=== PATIENT | female | born 1960 | race Caucasian/White ===

== ENCOUNTER 2019-05-01 01:48 | Emergency (ER) | payer BC ==
[~2019-05-01] VITALS: Ht 160 cm; Wt 55.5 kg
[~2019-05-01 01:48] MED LIST: BENTYL 20MG20 MG/TAB PO; CEPHALEXIN500 M1 PO; DULCOLAX STOOL100 MG PO; OXY IR5 MG PO; PERCOCET 325 MG1 TA2 PO; PHENERGAN 25 TA25 MG PO; REGLAN 10MG10 MG/TAB PO; ZOFRAN ODT4 MG PO
[2019-05-01 02:37] LABS: BASO % 0.2 % (0.0-2.0); GRAN # 10.5 (1.4-6.5); GRAN % 85.1 % (42.2-75.2); HEMATOCRIT 43.2 % (37.0-47.0); HEMOGLOBIN 14.7 g/dl (12.5-16.0); LYMPH % 7.7 % (20.0-51.0); MEAN CELL VOLUME 87 fl (80.0-100.0); MEAN CORPUSCULAR HEMOGLOBIN 30 pg (27.0-31.0); MEAN CORPUSCULAR HGB CONC 34 g/dl (33.0-37.0); MEAN PLATELET VOLUME 9.8 fl (7.4-10.4); MONO # 0.8 (0.1-0.6); MONO % 6.6 % (1.7-9.3); PLATELET COUNT 343 K/mm3 (130-400); RED BLOOD COUNT 4.96 M/mm3 (4.10-5.30); REDCELL DISTRIBUTION WIDTH-CV 13.7 % (11.5-14.5)
[2019-05-01 02:50] LABS: ALBUMIN 4.3 gm/dL (3.5-5.0); BILIRUBIN,TOTAL 0.9 mg/dL (0.0-1.0); C-REACTIVE PROTEIN 0.8 mg/dL (0.0-0.9); CALCIUM 9.2 mg/dL (8.4-10.2); CREATININE, serum 1.13 (0.52-1.25); MAGNESIUM 1.9 mg/dL (1.6-2.3); TOTAL PROTEIN 8.1 gm/dL (6.4-8.2)
[2019-05-01 02:52] LABS: POTASSIUM 2.8 mmol/L (3.4-5.0)
[2019-05-01 03:39] LABS: COLLECTION METHOD CLEAN CATCH
[2019-05-01 03:44] LABS: MUCOUS Present /lpf; PH 5 (5-8); SQUAMOUS EPITHELIAL 0-2 /hpf; URINE APPEARANCE Hazy; URINE BACTERIA None Seen /hpf; URINE BILIRUBIN Negative (NEGATIVE); URINE BLOOD 2+ (NEGATIVE); URINE COLOR Amber; URINE GLUCOSE Negative (NEGATIVE); URINE KETONE Negative (NEGATIVE); URINE LEUKOCYTE ESTERASE Negative (NEGATIVE); URINE NITRATE Negative (NEGATIVE); URINE PROTEIN(semi-quant) 1+ (NEGATIVE)
[2019-05-01] MEDS ORDERED: MACROBID 1100 MG/CAP PO (06:58)
[2019-05-01] MEDS ORDERED: PHENERGAN25 MG RC (06:58)
[2019-05-01] MEDS ORDERED: ZOFRAN ODT4 MG PO (06:58)
[2019-05-01] MEDS ORDERED: K-TAB20 PO (06:59)
[2019-05-01 09:30] VITALS: BP 130/92; PULSE 70; TEMP 98.6
== END 2019-05-01 09:40 | disposition home or self-care (01) ==
LOC: COL.ER 01:48
PROVIDERS: Emergency Medicine
DX: C48.1 Malignant neoplasm of specified parts of peritoneum (principal); N94.89 Other specified conditions associated with female genital organs and menstrual cycle; R11.10 Vomiting, unspecified; Z90.49 Acquired absence of other specified parts of digestive tract; Z90.710 Acquired absence of both cervix and uterus
CPT/HCPCS: J1170; J2405; J2550; J3475; J3480; J7030; J7120; Q9967

== ENCOUNTER → 2020-02-17 | Outpatient (CLI) | payer MEDICAID ==
[~2020-02-17] MED LIST changes: +K-TAB20 PO; +MACROBID 1100 MG/CAP PO; +PHENERGAN25 MG RC
== END ==
LOC: MC.RAD 12:32
DX: N63.20 Unspecified lump in the left breast, unspecified quadrant (principal); N63.10 Unspecified lump in the right breast, unspecified quadrant; Z85.038 Personal history of other malignant neoplasm of large intestine
CPT/HCPCS: G0279

== ENCOUNTER → 2020-03-21 | Outpatient (CLI) | payer MEDICAID ==
[~2020-03-21] VITALS: Ht 162.6 cm; Wt 55.7 kg
[~2020-03-21] MED LIST changes: +XELODA500 MG PO
[2020-03-21 10:51] VITALS: BP 118/72; PULSE 96
[2020-03-21 11:34] VITALS: BP 121/82; PULSE 88
== END ==
LOC: COL.RAD 10:08
DX: C18.1 Malignant neoplasm of appendix (principal); E04.1 Nontoxic single thyroid nodule

== ENCOUNTER 2020-06-27 10:51 | Inpatient (IN) | payer MEDICAID ==
[~2020-06-27] VITALS: Ht 160 cm; Wt 56.0 kg
[2020-06-27 12:49] LABS: BASO % 0.2 % (0.0-2.0); EOS % 0.2 % (0-4.0); GRAN # 8.6 (1.4-6.5); GRAN % 74.6 % (42.2-75.2); HEMOGLOBIN 10.3 g/dl (12.5-16.0); LYMPH # 1.6 (1.2-3.4); LYMPH % 13.6 % (20.0-51.0); MEAN CELL VOLUME 98 fl (80.0-100.0); MEAN CORPUSCULAR HEMOGLOBIN 32 pg (27.0-31.0); MEAN CORPUSCULAR HGB CONC 33 g/dl (33.0-37.0); MEAN PLATELET VOLUME 9.4 fl (7.4-10.4); MONO # 1.3 (0.1-0.6); MONO % 10.9 % (1.7-9.3); PLATELET COUNT 268 K/mm3 (130-400); RED BLOOD COUNT 3.23 M/mm3 (4.10-5.30)
[2020-06-27 12:53] LABS: HEMATOCRIT 31.5 % (37.0-47.0)
[2020-06-27 13:00] LABS: ALBUMIN 3.9 gm/dL (3.5-5.0); BILIRUBIN,TOTAL 0.4 mg/dL (0.0-1.0); C-REACTIVE PROTEIN 4.8 mg/dL (0.0-0.9); CALCIUM 9.3 mg/dL (8.4-10.2); CREATININE, serum 0.67 (0.52-1.25); POTASSIUM 3.9 mmol/L (3.4-5.0); TOTAL PROTEIN 8.6 gm/dL (6.4-8.2)
[2020-06-27 16:12] LABS: COLLECTION METHOD CLEAN CATCH
[2020-06-27 17:05] LABS: MUCOUS Present /lpf; PH 7 (5-8); URINE APPEARANCE Clear; URINE BACTERIA None Seen /hpf; URINE BILIRUBIN Negative (NEGATIVE); URINE BLOOD 2+ (NEGATIVE); URINE COLOR Yellow; URINE GLUCOSE Negative (NEGATIVE); URINE KETONE Trace (NEGATIVE); URINE LEUKOCYTE ESTERASE Negative (NEGATIVE); URINE NITRATE Negative (NEGATIVE); URINE PROTEIN(semi-quant) Negative (NEGATIVE); URINE RBC 20-50 /hpf
--- NOTE | 2020-06-27 17:49 | NUR ---
PT AOX4, PT DROWSY, PT REPORTS NAUSEA, PT MED REC COMPLETED ONLY REPORTS 2 MEDICATIONS. PT SETTLED INTO ROOM, CALL LIGHT WITHIN REACH. EKG BEING PERFORMED, NO OTHER NEEDS AT THIS TIME.
[2020-06-27 17:57] VITALS: BP 158/76; PULSE 68; TEMP 98
--- NOTE | 2020-06-27 18:20 | NUR ---
PT VOMITING OF YELLOW STOMACH BILE AND REPORTS FEELING TIRED AND DROWSY , PT REQUESTED JELLO AND SPRITE. FLUIDS ATTACHED, ZOFRAN GIVEN, JELLO AND SPRITE BROUGHT TO PT. NO OTHER NEEDS AT THIS TIME.
--- NOTE | 2020-06-27 19:31 | NUR ---
Received report from KIRK Marquez. Pt assisted to bathroom SBA, appears steady. Reports nausea, partial relief from lying in bed. Declines pain medication at this time.
[2020-06-27 19:33] VITALS: BP 148/78; PULSE 76; TEMP 97.7
--- NOTE | 2020-06-27 22:05 | NUR ---
Assessment completed. Pt reports nausea and being unable to keep anything down. Pt vomited into bucket at bedside multiple times while this RN at bedside. Emesis appears yellow/green in color and watery, small amount. Reports mild pain in legs, declines intervention for this. NS running at 125 to right chest port, dressing and site clean, dry, intact. Gait steady, denies dizziness.
[2020-06-27 23:46] VITALS: BP 144/74; PULSE 81; TEMP 99.4
--- NOTE | 2020-06-28 01:45 | NUR ---
PO Melatonin and Percocet given. Pt vomited immediately after taken. Pills not visualized in emesis. Libertad WALTERS updated of situation. IV Dilaudid ordered PRN for pain and rectal compazine ordered for N/V.
[2020-06-28 03:52] VITALS: BP 139/77; PULSE 72; TEMP 98.5
--- NOTE | 2020-06-28 06:59 | NUR ---
Pt continues to have N/V, reports little to no relief from Zofran, Phenergan, or Compazine. Emesis changed from green bile to watery brown. Pt has not eaten and only had a few sips of water and sprite, unable to keep this down. PO medications vomited up as well. Pain relieved by IV Dilaudid per pt report. Report given to KIRK Pandey. Pt lying in bed, denies needs at this time.
[2020-06-28 08:19] VITALS: BP 133/73; PULSE 71; TEMP 98.5
[2020-06-28 09:12] LABS: BASO % 0.2 % (0.0-2.0); GRAN # 7.2 (1.4-6.5); HEMOGLOBIN 10.7 g/dl (12.5-16.0); LYMPH # 1.1 (1.2-3.4); LYMPH % 11.6 % (20.0-51.0); MEAN CELL VOLUME 99 fl (80.0-100.0); MEAN CORPUSCULAR HEMOGLOBIN 32 pg (27.0-31.0); MEAN CORPUSCULAR HGB CONC 33 g/dl (33.0-37.0); MEAN PLATELET VOLUME 9.3 fl (7.4-10.4); MONO # 0.7 (0.1-0.6); MONO % 7.6 % (1.7-9.3); PLATELET COUNT 270 K/mm3 (130-400); RED BLOOD COUNT 3.34 M/mm3 (4.10-5.30); REDCELL DISTRIBUTION WIDTH-CV 17.2 % (11.5-14.5)
[2020-06-28 09:18] LABS: HEMATOCRIT 32.9 % (37.0-47.0)
--- NOTE | 2020-06-28 09:20 | NUR ---
Assessment complete. PAtient lying in bed eyes closed, but responds to all questions. PAtient seems very unhappy. States she cannot keep anything down without zomiting and is concerned about the color of it. She has requested to have the IV fluids discontinued, I will mention this to her healthcare team. Port site is CD&I. Patient denies other needs at this time. Call light is in reach.
[2020-06-28 09:27] LABS: CREATININE, serum 0.64 (0.52-1.25); MAGNESIUM 1.8 mg/dL (1.6-2.3); POTASSIUM 3.5 mmol/L (3.4-5.0)
--- NOTE | 2020-06-28 09:58 | NUR ---
Pt reportedly took her last dose of Xeloda on 06/21. It's presence in urine and stool will last for 5 days after administration which should be over unless drug is restarted.
[2020-06-28 12:46] VITALS: BP 141/73; PULSE 62; TEMP 98.5
--- NOTE | 2020-06-28 13:29 | NUR ---
Port not flushing well or giving blood return. Delcid needle dc'd and site prep with new access kit. 3/4 delcid needle used and blood return noted with much improved ease of flushing. Secured with tegaderm after flushed with NS 20ml.
--- NOTE | 2020-06-28 13:50 | NUR ---
Patients port became very hard to flush and would not draw blood at this time. Heparin flush was attempted to be used but only 1ml would flush. Krystyna Shields RN was consulted for help with this issue. After many tries the patients port continued to have issues. The port was deacessed and re-accessed and now flushes and draws very well. IVF continue to run at 75 ml/hr. Patient recieved PRN dilaudid at this time for pain rated at a 4-5. Patient is now resting eyes closed. No other needs at this time.
--- NOTE | 2020-06-28 16:11 | NUR ---
Patient continues to rest at this time, appears to be comfortable, eyes closed. NO other needs were expressed at this time. Call light is in reach.
--- NOTE | 2020-06-28 16:19 | NUR ---
Diesel Maintenance Electrician met with the patient to complete initial intake. The patient lives alone in [place]. The patient denies DME use and is independent with ADLs. The patient's PCP is Dr. Hu and Oncologist is Dr. Caldera. Per EMR the patient is on PO chemotherapy. The patient receives medications from [facility] pharmacy with no difficulties. The patient has advanced directives in the EMR. The patient has her groceries delivered from [employer]. The patient has transportation through her insurance to appointments. SW will need to assist with transportation set up at discharge. The patient plans to return home. Will continue to monitor.
[2020-06-28 16:50] VITALS: BP 106/62; PULSE 64; TEMP 98.1
[2020-06-28 20:01] VITALS: BP 121/74; PULSE 71; TEMP 97.8
--- NOTE | 2020-06-28 22:32 | NUR ---
Pt resting in bed, reports nausea but no emesis and was able to keep fluids down. gave zofran prn per orders documented in the MAR. pt denies any other pain. heart sounds are regular and lung sounds are clear, pt denies shortness of breath or cough. no other needs at this time, will continue to monitor.
[2020-06-28 23:29] VITALS: BP 112/62; PULSE 86; TEMP 98.7
[2020-06-29 03:14] VITALS: BP 101/53; PULSE 65; TEMP 97.7
--- NOTE | 2020-06-29 06:03 | NUR ---
pt sleeping in bed most of the night, did not call for any needs. will continue to monitor.
--- NOTE | 2020-06-29 06:11 | NUR ---
Pt ate saltine crackers and jello and was able to keep them down. pt also had water and juice to drink, no emesis during this shift. pt would like to continue to try and eat throughout the day.
[2020-06-29 07:24] LABS: BASO % 0.5 % (0.0-2.0); EOS # 0.1 (0.0-0.7); EOS % 1.1 % (0-4.0); LYMPH # 1.7 (1.2-3.4); LYMPH % 26.1 % (20.0-51.0); MEAN CELL VOLUME 100 fl (80.0-100.0); MEAN CORPUSCULAR HGB CONC 32 g/dl (33.0-37.0); MEAN PLATELET VOLUME 9.6 fl (7.4-10.4); MONO # 0.7 (0.1-0.6); MONO % 10.8 % (1.7-9.3); PLATELET COUNT 233 K/mm3 (130-400); RED BLOOD COUNT 2.66 M/mm3 (4.10-5.30); REDCELL DISTRIBUTION WIDTH-CV 17.1 % (11.5-14.5)
[2020-06-29 07:26] LABS: HEMATOCRIT 26.6 % (37.0-47.0); HEMOGLOBIN 8.5 g/dl (12.5-16.0); MEAN CORPUSCULAR HEMOGLOBIN 32 pg (27.0-31.0)
[2020-06-29 07:41] LABS: CALCIUM 8.2 mg/dL (8.4-10.2); CREATININE, serum 0.71 (0.52-1.25)
[2020-06-29 07:50] VITALS: BP 109/64; PULSE 71; TEMP 97.8
--- NOTE | 2020-06-29 08:28 | NUR ---
Patient is alert and oriented. complain of chronic leg pain at 2/10. patient eager to eat this morning. patient mention she feels better this morning.
--- NOTE | 2020-06-29 09:12 | NUR ---
Mash Tub Cooker Operator attended clinical rounds with the team. The patient is feeling better. Will continue to monitor.
[2020-06-29 11:26] VITALS: BP 107/63; PULSE 77; TEMP 97.6
[2020-06-29 16:45] VITALS: BP 121/86; PULSE 70; TEMP 97.7
[2020-06-29] MEDS ORDERED: CARAFATE 1GM1 G PO (16:56)
[2020-06-29] MEDS ORDERED: PEPCID40 MG PO (16:56)
[2020-06-29] MEDS ORDERED: ZOFRAN ODT8 MG PO (16:57)
[2020-06-29] MEDS ORDERED: PHENERGAN 25 TA25 MG PO (16:58)
[2020-06-29 17:00] VITALS: BP 124/73; PULSE 71
[2020-06-29 19:11] VITALS: BP 120/74; PULSE 74; TEMP 98.4
--- NOTE | 2020-06-29 19:24 | NUR ---
during report change patient had an episode of emesis. Night nurse agree to administer nausea medication
--- NOTE | 2020-06-29 22:52 | NUR ---
Pt did not tolerate dinner, vomiting immediatly after eating. gave zofran prn per DEC. pt requested scheduled zofran before meals to help with nausea. this nurse reported this to REBEKAH Maurer. pt also wanted something stronger than melatonin to sleep and for fluids to be stopped. notified REBEKAH Maurer of this as well. will continue fluids per orders and continue to monitor patient.
--- NOTE | 2020-06-29 23:26 | NUR ---
Pt still reporting nausea, requested phenergan. gave phenergan prn per orders, documented in DEC.
[2020-06-30] VITALS (7 sets, daily range): BP systolic 115–151; BP diastolic 75–84; PULSE 72–105; TEMP 98–99.1
--- NOTE | 2020-06-30 00:18 | NUR ---
Pt reporting pain all over and requesting percocet. gave percocet prn per orders, pt vomited small amount of clear emesis. pt reporting feeling cold, gave patient another warm blanket and helped readjust in bed. made sure the heat was all the way up in room. will continue to monitor.
--- NOTE | 2020-06-30 01:26 | NUR ---
Pt reporting pain a 9 on a scale of 1 to 10. gave diludid prn per orders, documented in DEC. will continue to monitor.
--- NOTE | 2020-06-30 01:59 | NUR ---
Pt potassium result was 3.6, replaced per potassium protocol for central line. documented in MAR.
--- NOTE | 2020-06-30 03:36 | NUR ---
Pt requested diludid for pain, gave per DEC. started second bag of potassium per protocol for central line.
--- NOTE | 2020-06-30 05:23 | NUR ---
Pt has reported nausea consistently throughout the night, gave prn medications per DEC. pt also reporting pain, gave diludid prn per DEC. vomiting and constantly getting up to use the restroom. pt reports being cold, gave multiple warm blankets to try and warm her up. pt has no fever. will continue to monitor.
[2020-06-30 05:46] LABS: BASO % 0.2 % (0.0-2.0); EOS % 0.1 % (0-4.0); GRAN # 7.7 (1.4-6.5); GRAN % 84.7 % (42.2-75.2); LYMPH # 0.7 (1.2-3.4); LYMPH % 7.6 % (20.0-51.0); MEAN CELL VOLUME 98 fl (80.0-100.0); MEAN CORPUSCULAR HGB CONC 33 g/dl (33.0-37.0); MEAN PLATELET VOLUME 9.2 fl (7.4-10.4); MONO # 0.6 (0.1-0.6); MONO % 6.6 % (1.7-9.3); PLATELET COUNT 256 K/mm3 (130-400); RED BLOOD COUNT 3.61 M/mm3 (4.10-5.30); REDCELL DISTRIBUTION WIDTH-CV 17.1 % (11.5-14.5)
[2020-06-30 05:53] LABS: CALCIUM 9.1 mg/dL (8.4-10.2); CREATININE, serum 0.7 (0.52-1.25); POTASSIUM 4.3 mmol/L (3.4-5.0)
[2020-06-30 05:55] LABS: HEMATOCRIT 35.2 % (37.0-47.0); MEAN CORPUSCULAR HEMOGLOBIN 32 pg (27.0-31.0)
[2020-06-30 05:59] LABS: HEMOGLOBIN 11.6 g/dl (12.5-16.0)
--- NOTE | 2020-06-30 07:30 | NUR ---
Patient resting in bed, A&Ox3. VSS. IV CDI, fluids infusing. Complaints of nausea and pain in legs. Nausea and pain medication given as requested. Patient also states that she is tired. Nurse informed patient that nursing staff will try and cluster care to give her more quite time. Patient verbalized an understanding. No further needs expressed from the patient. Call light within reach
--- NOTE | 2020-06-30 17:50 | NUR ---
Patient has had complaints of nausea and vommiting throughout the shift. States that ativan is the only thing that works for nausea and wants to be discharged with an RX for it. Complaints of pain in legs, pain medication given when requested. Patient refusing IV fluids and PO intake. Nurse encouraging patient to eat. Patient A&Ox3. VSS. IV CDI. No further needs expressed from the patient. Call light within reach
--- NOTE | 2020-06-30 21:09 | NUR ---
Pt resting in bed, states that the ativan and diludid are helping with the nausea and vomiting. took night time meds PO per DEC and tolerated well. did not eat dinner, drinking warm tea as tolerated. rated pain a 6 out of 10, in the legs and abdomen. no other needs at this time, pt is currently sleeping. will continue to monitor.
--- NOTE | 2020-06-30 21:33 | NUR ---
Pt reporting pain and nausea, vomitted clear small amount. gave diludid IV and zofran IV prn per orders, documented in MAR. no other needs at this time, will continue to monitor.
--- NOTE | 2020-07-01 02:16 | NUR ---
Pt reported nausea and pain in legs and feet. gave ativan and diludid prn per orders, documented in the MAR. helped pt readjust in bed, provided a warm blanket. no other needs at this time.
[2020-07-01 04:16] VITALS: BP 133/72; PULSE 96; TEMP 99.3
--- NOTE | 2020-07-01 06:11 | NUR ---
pt states she feels she is doing much better tonight and this morning. small amount of clear/white emesis. pt still reporting nausea and pain in her legs. gave prn zofran, diludid and ativan documented in the MAR. pt states that she prefers the ativan and diludid, those seem to help relieve her symptoms the best. no other needs at this time.
[2020-07-01 06:43] LABS: BASO % 0.3 % (0.0-2.0); EOS % 0.4 % (0-4.0); GRAN # 8.2 (1.4-6.5); GRAN % 75.2 % (42.2-75.2); HEMOGLOBIN 10.2 g/dl (12.5-16.0); LYMPH # 1.5 (1.2-3.4); MEAN CELL VOLUME 97 fl (80.0-100.0); MEAN CORPUSCULAR HEMOGLOBIN 31 pg (27.0-31.0); MEAN CORPUSCULAR HGB CONC 32 g/dl (33.0-37.0); MEAN PLATELET VOLUME 9.4 fl (7.4-10.4); MONO % 9.5 % (1.7-9.3); PLATELET COUNT 233 K/mm3 (130-400); RED BLOOD COUNT 3.25 M/mm3 (4.10-5.30); REDCELL DISTRIBUTION WIDTH-CV 17.1 % (11.5-14.5)
[2020-07-01 06:45] LABS: HEMATOCRIT 31.5 % (37.0-47.0)
[2020-07-01 06:58] LABS: CALCIUM 8.6 mg/dL (8.4-10.2); CREATININE, serum 0.73 (0.52-1.25); POTASSIUM 3.3 mmol/L (3.4-5.0)
[2020-07-01 08:00] VITALS: BP 107/78; PULSE 90
--- NOTE | 2020-07-01 09:00 | NUR ---
Patient resting in bed. A&Ox3. VSS. IV CDI port left chest. Patient stated that she would like some more sleep and had no complaints of nausea when awakened. Nurse encourgaged patient to eat throughout the day and to inform nurse of any nausea. Patient verbalized an understanding. No further needs expressed from the patient. Call light within reach
--- NOTE | 2020-07-01 10:58 | NUR ---
Pt stated that she was feeling better. Pt ate 50% of breakfast without any vomiting. Pt resting in bed. Call light within reach.
[2020-07-01 11:44] VITALS: BP 116/90; PULSE 91; TEMP 98.6
[2020-07-01 16:00] VITALS: BP 145/85; PULSE 91; TEMP 98.6
--- NOTE | 2020-07-01 16:23 | NUR ---
SW attempted to contact [facility] to arrange transportation for patient. Organization was closed for the weekend.
--- NOTE | 2020-07-01 17:57 | NUR ---
Patient had an uneventful day, spent the day resting in bed. Easily awakened with verbal command and then would go back to sleep. Patient had complaints of nausea, no emesis reported. Patient was able to eat more during meals. A&Ox3. VSS. IV CDI. Nurse encouraging patient to increase PO intake. Patient verbalized an understanding. No further needs expressed from the patient. Call light within reach
[2020-07-01 19:32] VITALS: BP 127/68; PULSE 94; TEMP 98.9
--- NOTE | 2020-07-01 21:00 | NUR ---
Initial assessment done-drowsy,just wants to sleep- VSS, able to keep a few bites of food down today- taking ativan p.o for nausea
--- NOTE | 2020-07-01 23:15 | NUR ---
Awake,requesting ativan and compazine for nausea--- will give as ordered, also did eat 2 vanilla ice creams this shift and some sprite,up to bathroom on own
[2020-07-02 03:30] VITALS: BP 114/73; PULSE 103; TEMP 98.6
[2020-07-02 08:00] VITALS: BP 121/81; PULSE 94; TEMP 98.3
[2020-07-02 11:30] VITALS: BP 110/72; PULSE 93; TEMP 97.9
--- NOTE | 2020-07-02 16:58 | NUR ---
Discharge instructions reviwed with the patient, instructed to follow up with PCP/Onc as directed, discussed medications/ scripts sent to [facility] pharmacy, IV removed, patient leaving with a friend, I escorted her out the door
== END 2020-07-02 16:59 | disposition home or self-care (01) | DRG 381 ==
LOC: COL.ER 10:51 → MEDICAL 15:21
PROVIDERS: Emergency Medicine; Internal Medicine Gastroenterology; Physician Assistant; ADMIT Hospitalist
PROC: 0DJ08ZZ Inspection of Upper Intestinal Tract, Via Natural or Artificial Opening Endoscopic (ICD-10-PCS; principal; 2020-06-29 12:45)
DX: K22.11 Ulcer of esophagus with bleeding (principal); C18.1 Malignant neoplasm of appendix; C48.1 Malignant neoplasm of specified parts of peritoneum; E87.6 Hypokalemia; K21.0 Gastro-esophageal reflux disease with esophagitis; G47.00 Insomnia, unspecified; Z88.0 Allergy status to penicillin
CPT/HCPCS: OP; 99232-AI; C9113; G0378; J1170; J1644; J2060; J2270; J2405; J2550; J2704; J3480; J7030; Q9967

== ENCOUNTER 2020-08-03 17:42 | Observation (INO) | payer MEDICAID ==
[~2020-08-03] VITALS: Ht 160 cm; Wt 45.9 kg
[~2020-08-03 17:42] MED LIST changes: +CARAFATE 1GM1 G PO; +PEPCID40 MG PO; +ZOFRAN ODT8 MG PO
[2020-08-03 18:53] LABS: COLLECTION METHOD CLEAN CATCH
[2020-08-03 19:21] LABS: MUCOUS Present /lpf; PH 5 (5-8); SQUAMOUS EPITHELIAL 0-2 /hpf; URINE APPEARANCE Hazy; URINE BACTERIA None Seen /hpf; URINE BILIRUBIN Negative (NEGATIVE); URINE BLOOD 2+ (NEGATIVE); URINE COLOR Amber; URINE GLUCOSE Negative (NEGATIVE); URINE KETONE 1+ (NEGATIVE); URINE LEUKOCYTE ESTERASE Negative (NEGATIVE); URINE NITRATE Negative (NEGATIVE); URINE PROTEIN(semi-quant) 2+ (NEGATIVE); URINE RBC >50 /hpf; URINE UROBILINOGEN >=4.0 mg/dL (NEGATIVE)
[2020-08-03 19:29] LABS: BASO % 0.2 % (0.0-2.0); GRAN # 9.3 (1.4-6.5); GRAN % 96.7 % (42.2-75.2); HEMOGLOBIN 11.1 g/dl (12.5-16.0); LYMPH # 0.2 (1.2-3.4); LYMPH % 1.9 % (20.0-51.0); MEAN CELL VOLUME 91 fl (80.0-100.0); MEAN CORPUSCULAR HEMOGLOBIN 29 pg (27.0-31.0); MEAN CORPUSCULAR HGB CONC 32 g/dl (33.0-37.0); MEAN PLATELET VOLUME 9.2 fl (7.4-10.4); MONO # 0.1 (0.1-0.6); MONO % 0.9 % (1.7-9.3); PLATELET COUNT 378 K/mm3 (130-400); RED BLOOD COUNT 3.82 M/mm3 (4.10-5.30); REDCELL DISTRIBUTION WIDTH-CV 15.7 % (11.5-14.5)
[2020-08-03 19:30] LABS: HEMATOCRIT 34.6 % (37.0-47.0)
[2020-08-03 19:41] LABS: ALBUMIN 3.5 gm/dL (3.5-5.0); BILIRUBIN,TOTAL 0.7 mg/dL (0.0-1.0); CALCIUM 8.3 mg/dL (8.4-10.2); CREATININE, serum 0.89 (0.52-1.25); MAGNESIUM 1.9 mg/dL (1.6-2.3); PHOSPHOROUS 3.2 mg/dL (2.5-4.5); TOTAL PROTEIN 7.5 gm/dL (6.4-8.2)
[2020-08-03 19:45] LABS: POTASSIUM 2.6 mmol/L (3.4-5.0)
[2020-08-03 19:52] LABS: TROPONIN-I 0.013 ng/mL (0.000-0.035)
[2020-08-04] MEDS ORDERED: PHENERGAN25 MG RC (00:20)
[2020-08-04] MEDS ORDERED: ATIVAN 0.50.5 MG/TAB PO (00:43)
--- NOTE | 2020-08-04 01:00 | NUR ---
Admitted to medical floor from ER with hypokalemia- weakness, nausea- alert, oriented, talkative-- VSS, Meghana JURADO is writing orders on the patient now-- IV fluids of NS with 40MEQ of K+ infusing at 125cc/hr via port to right chest. Having some small episodes of emesis,, up to bathroom with assist- slow but steady,
[2020-08-04 05:00] VITALS: BP 107/70; PULSE 82; TEMP 98.5
--- NOTE | 2020-08-04 06:00 | NUR ---
Very busy night- pt did not sleep at all last night-- wanting percocet instead of [place] orders- so SPORTS CARTOONIST called and order was changed. Was given Morphine IV x2 during the night for pain-- was given Phenergan IV once for nausea-- numerous, numerous calls for repositiong, wanting different jello/juices etc, wanting warm blankets/different pillows etc,, Ativan given p.o x1,,, Continues with IV fluids at 125cc/hr w/40meqK+
[2020-08-04 07:46] LABS: BASO % 0.1 % (0.0-2.0); GRAN % 81.7 % (42.2-75.2); HEMOGLOBIN 10.1 g/dl (12.5-16.0); LYMPH # 0.7 (1.2-3.4); LYMPH % 9.9 % (20.0-51.0); MEAN CELL VOLUME 91 fl (80.0-100.0); MEAN CORPUSCULAR HEMOGLOBIN 29 pg (27.0-31.0); MEAN CORPUSCULAR HGB CONC 32 g/dl (33.0-37.0); MEAN PLATELET VOLUME 9.5 fl (7.4-10.4); MONO # 0.6 (0.1-0.6); PLATELET COUNT 376 K/mm3 (130-400); RED BLOOD COUNT 3.47 M/mm3 (4.10-5.30); REDCELL DISTRIBUTION WIDTH-CV 15.7 % (11.5-14.5)
[2020-08-04 07:48] LABS: HEMATOCRIT 31.6 % (37.0-47.0)
[2020-08-04 07:57] LABS: ALBUMIN 3.1 gm/dL (3.5-5.0); BILIRUBIN,TOTAL 0.6 mg/dL (0.0-1.0); CALCIUM 7.9 mg/dL (8.4-10.2); CREATININE, serum 0.8 (0.52-1.25); POTASSIUM 3.2 mmol/L (3.4-5.0); TOTAL PROTEIN 6.8 gm/dL (6.4-8.2)
[2020-08-04 08:37] VITALS: BP 96/67; PULSE 86; TEMP 98.1
--- NOTE | 2020-08-04 10:08 | NUR ---
Patient is alert and oriented. complain of abdominal pain. patient said she vomited some of her breakfast. 40% KCL IN 0.9%NS at 125mL. Dr. Fletcher started patient on potassium protocol, am K+ is 3.2.
[2020-08-04 11:57] VITALS: BP 98/69; PULSE 78; TEMP 97.7
--- NOTE | 2020-08-04 13:27 | NUR ---
Chaplain christian and offered support with patient.
--- NOTE | 2020-08-04 13:49 | NUR ---
Dr Fletcher gave verbal order to discontinue tele
--- NOTE | 2020-08-04 20:00 | NUR ---
Patient continue to complain of nausea and tiredness. Patient had one episode of confusion, she eventually redirect herself.
[2020-08-04 20:01] VITALS: BP 100/63; PULSE 84; TEMP 97.5
--- NOTE | 2020-08-04 20:15 | NUR ---
Initial shift assessment done- did have an emesis- states was trying to eat too much and than drank some chocolate ensure-- States abd pain/leg pain 05/04-will give Morphine IV and also p.o ativan at this time-- pt states the Ativan really helps with the nausea- IV fluids of NS w/40MEQ at 100cc/hr
[2020-08-04 23:57] VITALS: BP 109/69; PULSE 86; TEMP 98.1
[2020-08-05 04:15] VITALS: BP 100/72; PULSE 85; TEMP 97.5
--- NOTE | 2020-08-05 06:46 | NUR ---
Did get some sleep last night-- did not call for pain meds or nausea meds since the Morphine and ativan were given at start of shift-- IV fluids of NS w/40meq KCL at 100cc/hr
[2020-08-05 07:15] VITALS: BP 111/68; PULSE 80; TEMP 98.4
[2020-08-05 07:38] LABS: BASO % 0.3 % (0.0-2.0); EOS # 0.1 (0.0-0.7); EOS % 1.4 % (0-4.0); GRAN # 4.2 (1.4-6.5); GRAN % 65.5 % (42.2-75.2); LYMPH # 1.3 (1.2-3.4); LYMPH % 20.7 % (20.0-51.0); MEAN CELL VOLUME 94 fl (80.0-100.0); MEAN CORPUSCULAR HGB CONC 32 g/dl (33.0-37.0); MEAN PLATELET VOLUME 9.8 fl (7.4-10.4); MONO # 0.8 (0.1-0.6); MONO % 11.8 % (1.7-9.3); PLATELET COUNT 349 K/mm3 (130-400); RED BLOOD COUNT 3.12 M/mm3 (4.10-5.30); REDCELL DISTRIBUTION WIDTH-CV 15.9 % (11.5-14.5)
[2020-08-05 07:39] LABS: HEMATOCRIT 29.3 % (37.0-47.0); HEMOGLOBIN 9.3 g/dl (12.5-16.0); MEAN CORPUSCULAR HEMOGLOBIN 30 pg (27.0-31.0)
[2020-08-05 07:49] LABS: ALBUMIN 2.7 gm/dL (3.5-5.0); BILIRUBIN,TOTAL 0.4 mg/dL (0.0-1.0); CALCIUM 8.1 mg/dL (8.4-10.2); CREATININE, serum 0.76 (0.52-1.25); MAGNESIUM 1.9 mg/dL (1.6-2.3); POTASSIUM 3.5 mmol/L (3.4-5.0); TOTAL PROTEIN 6.1 gm/dL (6.4-8.2)
[2020-08-05] MEDS ORDERED: KLOR-CON20 MEQ PO (08:45)
[2020-08-05] MEDS ORDERED: PEPCID40 MG PO (08:45)
[2020-08-05] MEDS ORDERED: CARAFATE S1 GM/10 ML PO (08:45)
--- NOTE | 2020-08-05 09:00 | NUR ---
Assessment complete. Pt resting in bed, oriented x 4, drowsy, denies needs at this time. Plan for discharge reviewed with pt. Pt requests to finish current bag of IVF's then not receive any further replacement prior to discharge. PAC without s/s of complications. Call light in reach.
--- NOTE | 2020-08-05 15:00 | NUR ---
Pt resting in bed with eyes closed upon this nurse entering room, awakens easily with verbal stimuli and requests IV be removed. PAC deaccessed at this time. Pt's friend called and states that she'll be arriving around 1630. Pt acknowledges but not wanting to go through discharge paperwork at this time. Pt denies further needs. Call light in reach.
[2020-08-05 16:40] VITALS: BP 100/64; PULSE 85; TEMP 97.6
--- NOTE | 2020-08-05 17:00 | NUR ---
Discharge paperwork reviewed briefly with pt but pt not interested. Pt reports nausea with emesis x 1 while getting ready for discharge. PRN Ativan administered for nausea per orders. Pt's friend in room to assist with packing pt's belongings for discharge. Pt discharged home, escorted out of facility via WC accompanied by TREATING PLANT OPERATOR and pt's friend.
== END 2020-08-05 17:00 | disposition home or self-care (01) ==
LOC: COL.ER 17:42 → MEDICAL 21:59
PROVIDERS: Emergency Medicine; Nurse Practitioner Primary Care; ADMIT Internal Medicine
DX: R11.2 Nausea with vomiting, unspecified (principal); E86.0 Dehydration; E87.6 Hypokalemia; C18.1 Malignant neoplasm of appendix; C78.6 Secondary malignant neoplasm of retroperitoneum and peritoneum; E46 Unspecified protein-calorie malnutrition; Z88.0 Allergy status to penicillin; Z92.21 Personal history of antineoplastic chemotherapy; Z90.721 Acquired absence of ovaries, unilateral; Z90.710 Acquired absence of both cervix and uterus; Z90.49 Acquired absence of other specified parts of digestive tract; Z79.899 Other long term (current) drug therapy
CPT/HCPCS: G0378; J1650; J2270; J2550; J3010; J3480; J7030; Q9967

== ENCOUNTER 2020-09-04 14:22 | Outpatient (CLI) | payer MEDICAID ==
[~2020-09-04] VITALS: Ht 160 cm; Wt 45.5 kg
[~2020-09-04 14:22] MED LIST changes: +ATIVAN 0.50.5 MG/TAB PO; +CARAFATE S1 GM/10 ML PO; +KLOR-CON20 MEQ PO
[2020-09-04 14:30] VITALS: BP 93/52; PULSE 52; TEMP 97.3
== END 2020-09-04 17:26 | disposition home or self-care (01) ==
LOC: EUO 14:22
DX: C18.1 Malignant neoplasm of appendix (principal); C77.2 Secondary and unspecified malignant neoplasm of intra-abdominal lymph nodes; C78.6 Secondary malignant neoplasm of retroperitoneum and peritoneum; C79.61 Secondary malignant neoplasm of right ovary; C79.62 Secondary malignant neoplasm of left ovary; Z95.9 Presence of cardiac and vascular implant and graft, unspecified
CPT/HCPCS: J1644; J3480; J7030

== ENCOUNTER 2020-09-28 16:17 | Inpatient (IN) | payer MEDICAID ==
[~2020-09-28] VITALS: Ht 160 cm; Wt 42.6 kg
[2020-09-28 17:25] LABS: BASO % 0.3 % (0.0-2.0); EOS % 0.1 % (0-4.0); GRAN % 78.9 % (42.2-75.2); LYMPH # 0.7 (1.2-3.4); LYMPH % 9.6 % (20.0-51.0); MEAN CELL VOLUME 78 fl (80.0-100.0); MEAN CORPUSCULAR HGB CONC 33 g/dl (33.0-37.0); MEAN PLATELET VOLUME 8.8 fl (7.4-10.4); MONO # 0.8 (0.1-0.6); MONO % 10.8 % (1.7-9.3); PLATELET COUNT 247 K/mm3 (130-400); RED BLOOD COUNT 3.51 M/mm3 (4.10-5.30)
[2020-09-28 17:28] LABS: HEMATOCRIT 27.4 % (37.0-47.0); MEAN CORPUSCULAR HEMOGLOBIN 26 pg (27.0-31.0)
[2020-09-28 17:44] LABS: ALBUMIN 2.6 gm/dL (3.5-5.0); C-REACTIVE PROTEIN 7.6 mg/dL (0.0-0.9); CALCIUM 7.7 mg/dL (8.4-10.2); CREATININE, serum 0.61 (0.52-1.25)
[2020-09-28 17:47] LABS: POTASSIUM 2.5 mmol/L (3.4-5.0)
[2020-09-28 21:21] VITALS: BP 94/69; PULSE 91; TEMP 97.6
[2020-09-28 21:48] LABS: COLLECTION METHOD CLEAN CATCH
[2020-09-28 22:07] LABS: MUCOUS Present /lpf; PH 6 (5-8); SQUAMOUS EPITHELIAL 0-2 /hpf; URINE APPEARANCE Hazy; URINE BACTERIA None Seen /hpf; URINE BILIRUBIN Positive (NEGATIVE); URINE BLOOD Negative (NEGATIVE); URINE COLOR Amber; URINE GLUCOSE Negative (NEGATIVE); URINE KETONE 1+ (NEGATIVE); URINE LEUKOCYTE ESTERASE Negative (NEGATIVE); URINE NITRATE Negative (NEGATIVE); URINE PROTEIN(semi-quant) 1+ (NEGATIVE); URINE UROBILINOGEN >=4.0 mg/dL (NEGATIVE)
[2020-09-28] MEDS ORDERED: ATIVAN 0.50.5 MG/TAB PO (22:47)
[2020-09-28 23:07] VITALS: BP 91/66; PULSE 94; TEMP 97.5
[2020-09-29] VITALS (7 sets, daily range): BP systolic 93–100; BP diastolic 59–72; PULSE 56–97; TEMP 89–98
[2020-09-29 06:51] LABS: BASO % 0.5 % (0.0-2.0); EOS # 0.1 (0.0-0.7); EOS % 1.2 % (0-4.0); GRAN # 4.4 (1.4-6.5); GRAN % 73.3 % (42.2-75.2); LYMPH # 0.8 (1.2-3.4); LYMPH % 13.3 % (20.0-51.0); MEAN CELL VOLUME 79 fl (80.0-100.0); MEAN CORPUSCULAR HGB CONC 32 g/dl (33.0-37.0); MEAN PLATELET VOLUME 9.1 fl (7.4-10.4); MONO # 0.7 (0.1-0.6); MONO % 11.2 % (1.7-9.3); PLATELET COUNT 235 K/mm3 (130-400); RED BLOOD COUNT 3.24 M/mm3 (4.10-5.30); REDCELL DISTRIBUTION WIDTH-CV 18.3 % (11.5-14.5)
[2020-09-29 07:00] LABS: CALCIUM 7.1 mg/dL (8.4-10.2); CREATININE, serum 0.57 (0.52-1.25); MAGNESIUM 2.2 mg/dL (1.6-2.3); POTASSIUM 4.1 mmol/L (3.4-5.0)
[2020-09-29 07:01] LABS: HEMATOCRIT 25.7 % (37.0-47.0); HEMOGLOBIN 8.2 g/dl (12.5-16.0); MEAN CORPUSCULAR HEMOGLOBIN 25 pg (27.0-31.0)
[2020-09-30] VITALS (9 sets, daily range): BP systolic 89–104; BP diastolic 59–72; PULSE 85–98; TEMP 96.4–97.5
[2020-09-30 08:13] LABS: BASO % 0.3 % (0.0-2.0); EOS # 0.1 (0.0-0.7); EOS % 1.4 % (0-4.0); GRAN # 4.5 (1.4-6.5); GRAN % 72.6 % (42.2-75.2); LYMPH % 15.4 % (20.0-51.0); MEAN CELL VOLUME 80 fl (80.0-100.0); MEAN CORPUSCULAR HGB CONC 31 g/dl (33.0-37.0); MEAN PLATELET VOLUME 9.1 fl (7.4-10.4); MONO # 0.6 (0.1-0.6); PLATELET COUNT 244 K/mm3 (130-400); RED BLOOD COUNT 3.25 M/mm3 (4.10-5.30); REDCELL DISTRIBUTION WIDTH-CV 18.3 % (11.5-14.5)
[2020-09-30 08:25] LABS: CALCIUM 7.1 mg/dL (8.4-10.2); CREATININE, serum 0.56 (0.52-1.25); POTASSIUM 3.6 mmol/L (3.4-5.0)
[2020-09-30 08:30] LABS: HEMATOCRIT 25.9 % (37.0-47.0); HEMOGLOBIN 8.1 g/dl (12.5-16.0); MEAN CORPUSCULAR HEMOGLOBIN 25 pg (27.0-31.0)
[2020-09-30] MEDS ORDERED: ROXANOL 20MG20 MG/ML SL (15:41)
[2020-09-30] MEDS ORDERED: PROTONIX 40MG T40 MG PO (15:43)
[2020-09-30] MEDS ORDERED: REGLAN 10MG10 MG/TAB PO (15:44)
[2020-09-30] MEDS ORDERED: CARAFATE S1 GM/10 ML PO (15:46)
== END 2020-09-30 18:15 | disposition hospice, home (50) | DRG 391 ==
LOC: COL.ER 16:17 → SURG 18:37 → COL.ER 18:37 → SURG 09-30 18:15
PROVIDERS: Internal Medicine Gastroenterology; Nurse Practitioner; Nurse Practitioner Family; Physician Assistant; ADMIT Hospitalist
PROC: 0DB68ZX Excision of Stomach, Via Natural or Artificial Opening Endoscopic, Diagnostic (ICD-10-PCS; principal; 2020-09-30 08:30)
DX: R11.2 Nausea with vomiting, unspecified (principal); E43 Unspecified severe protein-calorie malnutrition; K22.11 Ulcer of esophagus with bleeding; C18.1 Malignant neoplasm of appendix; C78.6 Secondary malignant neoplasm of retroperitoneum and peritoneum; E87.1 Hypo-osmolality and hyponatremia; R18.8 Other ascites; Z68.1 Body mass index [BMI] 19.9 or less, adult; Z66 Do not resuscitate; Z51.5 Encounter for palliative care; E86.0 Dehydration; E87.6 Hypokalemia; I95.9 Hypotension, unspecified; E83.42 Hypomagnesemia; D64.9 Anemia, unspecified; E87.8 Other disorders of electrolyte and fluid balance, not elsewhere classified; Z88.0 Allergy status to penicillin
CPT/HCPCS: 99223-AI; 99232-AI; 99233-AI; 99239; C9113; J1170; J2405; J2550; J2704; J2765; J3475; J3480; J7030; Q9967